=== PATIENT | female | born 1995 | race Caucasian/White ===

== ENCOUNTER 2019-02-05 20:17 | Emergency (ER) | payer MEDICAID ==
[2019-02-05 20:17] VITALS: BMI 24.7
[2019-02-05 20:42] VITALS: BP 112/77; PULSE 78; RESP 16; TEMP 98.7; O2SAT 100
[2019-02-05] MEDS ORDERED: Sodium Chloride 0.9% 1,000 ML IV STA (21:13)
--- NOTE | 2019-02-05 21:37 | ED PDOC ---
HPI: Headache Time Seen by Provider: 02/05/19 20:53 Chief Complaint (Nursing): Headache Chief Complaint (Provider): Headache History Per: Patient History/Exam Limitations: no limitations Onset/Duration Of Symptoms: Days Current Symptoms Are (Timing): Still Present Additional Complaint(s): 24 y/o female presents to the ED for evaluation of intermittent headaches since July of last year. Patient states headache started again three days ago and is located in the frontal and upper part of her head. Patient describes pain as pressure-like and associated with a lot of facial pressure, burning sensation and redness to the face, nausea and vomiting. Patient states last episode of vomiting of was this morning. Otherwise, patient denies blurry vision, focal weakness, difficulty with speech or gait and fever. Patient reports of experiencing a similar headache that lasted a few days and resolved but was different because it was not associated with redness to the face. Patient notes of having another episode this month when she had a headache and sore throat. At that time, patient was diagnosed with strep and had been on antibiotics. Patient notes that she currently still has a mild sore throat. Patient additionally denies neck pain and stiffness. Of note, patient reports of taking different kinds of [id number] medications for headaches including excedrin and sinus medications with no relief. PMD: Farzana Zaldivar Past Medical History Reviewed: Historical Data, Nursing Documentation, Vital Signs Vital Signs: Last Vital Signs Temp 98.7 F 02/05/19 20:40 Pulse 78 02/05/19 20:40 Resp 16 02/05/19 20:40 BP 112/77 02/05/19 20:40 Pulse Ox 100 02/05/19 20:40 - Medical History PMH: No Chronic Diseases Denies: Anxiety, Bipolar Disorder, Depression, Personality Disorder, Post Traumatic Stress Disorder, Schizophrenia - Surgical History Surgical History: No Surg Hx - Family History Family History: States: Other Other Family History: Aunt has migraines. Mother has a history of sinus problems - Social History Drugs: Other (marijuana occasionally) - Immunization History Hx Tetanus Toxoid Vaccination: No Hx Influenza Vaccination: No Hx Pneumococcal Vaccination: No - Home Medications Home Medications: Ambulatory Orders Medication Instructions Recorded Ciprofloxacin [Cipro] 500 mg PO BID #20 tab 06/29/16 Metronidazole [Flagyl] 500 mg PO TID #30 tablet 06/29/16 Ondansetron ODT [Zofran ODT] 4 mg PO Q6H PRN #10 odt 06/29/16 Acetaminophen/Butalbital/Caf 1 tab PO TID PRN #20 tab 02/05/19 [Fioricet] Ondansetron ODT [Zofran ODT] 1 odt PO Q6 PRN #20 odt 02/05/19 - Allergies Allergies/Adverse Reactions: Allergies Allergy/AdvReac Type Severity Reaction Status Date / Time No Known Allergies Allergy Verified 06/29/16 11:16 Review of Systems ROS Statement: Except As Marked, All Systems Reviewed And Found Negative (as per HPI) Constitutional: Positive for: Other (facial pressure). Negative for: Fever Eyes: Negative for: Vision Change ENT: Positive for: Throat Pain Gastrointestinal: Positive for: Nausea, Vomiting Musculoskeletal: Negative for: Neck Pain Skin: Positive for: Rash (burning and redness to the face) Neurological: Positive for: Headache. Negative for: Weakness, Incoordination, Change in Speech Physical Exam - Reviewed Nursing Documentation Reviewed: Yes Vital Signs Reviewed: Yes - Physical Exam Appears: Positive for: In Acute Distress (mild, painful distress) Head Exam: Positive for: ATRAUMATIC, NORMOCEPHALIC Skin: Positive for: Warm, Dry, Rash (mallor rash to the face, erythematous) Eye Exam: Positive for: EOMI, PERRL ENT: Negative for: Pharyngeal Erythema, Tonsillar Exudate Neck: Positive for: Painless ROM, Supple Cardiovascular/Chest: Positive for: Regular Rate, Rhythm. Negative for: Murmur Respiratory: Positive for: Normal Breath Sounds. Negative for: Respiratory Distress Gastrointestinal/Abdominal: Positive for: Soft. Negative for: Tenderness Back: Positive for: Normal Inspection. Negative for: Muscle Spasm Extremity: Positive for: Normal ROM. Negative for: Deformity Lymphatic: Negative for: Adenopathy Neurological/Psych: Positive for: Awake, Alert, Oriented (x3), Cerebellar Tests (Normal finger to nose cerebellar test), bearing ring assembler II-XII (intact). Negative for: Motor/Sensory Deficits - Laboratory Results Result Diagrams: 02/05/19 21:45 02/05/19 21:45 - ECG O2 Sat by Pulse Oximetry: 100 (RA) Pulse Ox Interpretation: Normal Medical Decision Making Medical Decision Making: Time: 2112 Impression: Headache Differentials include but not limited to tension headache, migraine, sinusitits, intercerebral mass and autoimmune disorder Plan: -- CT Head w/o Contrast -- CMP -- Magnesium -- Phosphorus -- ED Urine Dipstick -- ED Urine -- CBC with Differentials -- CYNDI Screen IFA w/ Reflex -- Sodium Chloride IV 999 mls/hr -- Reglan 10 mg IVP -- Toradol 15 mg PO -- Tylenol 975 mg PO -- IV Insertion -- Infectious Mononucleosis Time: 2237 EXAM: US Abdomen complete CLINICAL HISTORY: Upper abd pain. TECHNIQUE: Real-time ultrasound of the abdomen (complete) with image documentation. COMPARISON: None provided. FINDINGS: LIVER: Unremarkable, measuring 15.6 cm in length. GALLBLADDER: several mobile gallstones are present. No gallbladder wall thickening. No pericholecystic fluid. COMMON BILE DUCT: No dilation, measuring 4 mm. PANCREAS: Unremarkable where visualized. The distal pancreas is obscured by overlying bowel gas. KIDNEYS: 11.8 x 4.7 by 5.1 cm right kidney. Unremarkable. Normal renal contours. No renal mass or calculus. No hydronephrosis. SPLEEN: Unremarkable. AORTA: No aneurysm. IVC: Unremarkable as visualized. MISCELLANEOUS: No other significant findings identified. IMPRESSION: Cholelithiasis. Electronically signed on Feb 05, 2019 9:57:24 PM EDT by: Elsa Pierson M.D., Certified by [facility], Diagnostic Radiology On reevaluation pt feels better. DW pt findings and plan of care. Fioricet prn for headache and followup neurology. Stable for discharge. Scribe Attestation: Documented by Thomas Marie, acting as a scribe Roselyn Cobian MD. Provider Scribe Attestation: All medical record entries made by the Scribe were at my direction and personally dictated by me. I have reviewed the chart and agree that the record accurately reflects my personal performance of the history, physical exam, medical decision making, and the department course for this patient. I have also personally directed, reviewed, and agree with the discharge instructions and disposition. Disposition - Clinical Impression Clinical Impression: Headache Counseled Patient/Family Regarding: Studies Performed, Diagnosis, Need For Followup, Rx Given - Disposition Referrals: Cierra Mena MD [Medical Doctor] - Disposition: Routine/Home Disposition Time: 22:52 Condition: STABLE Prescriptions: Acetaminophen/Butalbital/Caf [Fioricet] 1 tab PO TID PRN #20 tab PRN Reason: Headache Ondansetron ODT [Zofran ODT] 1 odt PO Q6 PRN #20 odt PRN Reason: Nausea/Vomiting Instructions: Migraine Headache (DC), Headache, Adult (DC)
[2019-02-05 22:05] LABS: BASO % 0.3 % (0.0-2.0); EOS # 0.1 K/uL (0.0-0.7); EOS % 1.5 % (0.0-4.0); HEMOGLOBIN 13.3 g/dL (12.0-16.0); LYMPH # 1.2 K/uL (1.0-4.3); LYMPH % 12.9 % (20.0-40.0); MEAN CELL VOLUME 87.2 fl (81.0-99.0); MEAN CORPUSCULAR HEMOGLOBIN 28.8 pg (27.0-31.0); MEAN PLATELET VOLUME 9.5 fl (7.2-11.7); MONO # 0.6 K/uL (0.0-0.8); MONO % 6.7 % (0.0-10.0); NEUT # 7.6 K/uL (1.8-7.0); NEUT % 78.6 % (50.0-75.0); RBC 4.61 Mil/uL (3.80-5.20); RED CELL DISTRIBUTION WIDTH 13.8 % (11.5-14.5); WHITE BLOOD COUNT 9.6 K/uL (4.8-10.8)
[2019-02-05 22:15] LABS: ALB/GLOB RATIO 1.3 (1.0-2.1); ALBUMIN 4.7 g/dL (3.5-5.0); ALT/SGPT 31 U/L (9-52); AST/SGOT 30 U/L (14-36); BLOOD UREA NITROGEN 8 mg/dl (7-17); GFR NON-AFRICAN AMERICAN > 60
--- NOTE | 2019-02-06 09:00 | CT ---
Date of service: 02/05/2019 PROCEDURE: CT HEAD WITHOUT CONTRAST. HISTORY: severe headache COMPARISON: None available. TECHNIQUE: Axial computed tomography images were obtained through the head/brain without intravenous contrast. Radiation dose: Total exam DLP = 652.56 mGy-cm. This CT exam was performed using one or more of the following dose reduction techniques: Automated exposure control, adjustment of the mA and/or kV according to patient size, and/or use of iterative reconstruction technique. FINDINGS: HEMORRHAGE: No intracranial hemorrhage. BRAIN: Normal hartman-white matter differentiation and density are appreciated throughout the cerebrum and cerebellum with the brainstem appearing unremarkable as well. There is no mass effect. There is no suspicious extra-axial fluid collection and the midline brain anatomy appears diffusely unremarkable. VENTRICLES: Unremarkable. No hydrocephalus. CALVARIUM: No destructive bony lesion or displaced fracture identified including through the skullbase. PARANASAL SINUSES: Unremarkable as visualized. No significant inflammatory changes. MASTOID AIR CELLS: Unremarkable as visualized. No inflammatory changes. OTHER FINDINGS: None. IMPRESSION: Normal CT of the Head. Concordant preliminary report from Matt, 01/28/2019, 10:30 p.m..
== END 2019-02-05 23:22 | disposition home or self-care (01) ==
LOC: H.ER 20:17
DX: R51 Headache (principal); K80.20 Calculus of gallbladder without cholecystitis without obstruction
CPT/HCPCS: 70450; 80053; 81025; 83735; 84100; 85025; 86038; 86308; 96361; 96374; 96375; 99284; J1885; J2765; J7030